=== PATIENT | female | born 2000 | race Caucasian/White ===

== ENCOUNTER → 2019-08-28 | Outpatient (CLI) | payer SELFPAY ==
--- NOTE | 2019-08-28 19:03 | Diagnostic Imaging Report ---
CLINICAL HISTORY: Skin mass in the left lower leg for 2 weeks. COMPARISON: None TECHNIQUE: 2 views of the left tibia and fibula. FINDINGS: There is no acute fracture or dislocation of the left tibia and fibula. Alignment is anatomic. No osseous lesions. No soft tissue mass is seen in the area of palpable concern. IMPRESSION: 1. No soft tissue mass is appreciated radiographically in the area of concern. If continued concern, consider soft tissue ultrasound to further evaluate. 2. No acute fracture or dislocation in the left tibia and fibula. No osseous lesions. Dictated by: Dictated on workstation # [id number]
== END ==
LOC: RAD FS 16:52
PROVIDERS: ATTEND Nurse Practitioner Family
DX: M79.662 Pain in left lower leg (principal); R22.42 Localized swelling, mass and lump, left lower limb
CPT/HCPCS: 73590